=== PATIENT | female | born 1975 | race Caucasian/White ===

== ENCOUNTER 2016-10-29 20:19 | Emergency (ER) | payer BC ==
[2016-10-29 20:41] VITALS: O2SAT 99
[2016-10-29] MEDS ORDERED: DELTASONE 20 MG PO ONE (20:57)
[2016-10-29] MEDS ORDERED: DELTASONE 20 MG ONE (21:01)
--- NOTE | 2016-10-29 21:03 | ERPHSYRPT ---
- History of Present Illness Time Seen by Provider: 10/29/16 20:30 Source: patient Exam Limitations: clinical condition Patient Subjective Stated Complaint: Pt states she had just left [employer] and her face started to feel numb. She noticed her lip was swollen. Denies any new medications, food, etc. The only thing she can think of is the plant she was buying . Triage Nursing Assessment: Pt alert and oriented x3. skin pink warm and dry. afebrile. left side cheek and lip swollen. airway patent. pt is in no respiratory distress at this time Physician History: PATIENT JUST LEFT [employer] AFTER PURCHASE OF VANESSA AND DEVELOPED ONSET OF LOWER LEFT LIP SWELLING ASSOCIATED WITH SLIGHT LEFT FACIAL NUMBNESS, DENIES ITCHING, THROAT TIGHTNESS, DIFFICULTY BREATHING OR SWALLOWING OR HOARSNESS. Timing/Duration: abrupt onset Severity: mild ENT Location: mouth Prearrival Treatment: no prearrival treatment Associated Symptoms: other (LIP SWELLING) Allergies/Adverse Reactions: No Known Drug Allergies Allergy (Verified 10/29/16 20:26) Home Medications: Norgestimate-Ethinyl Estradiol [Ortho Tri-Cyclen 28 Tablet] 1 each PO DAILY 09/11 [History] Hx Tetanus, Diphtheria Vaccination/Date Given: (unsure) Hx Influenza Vaccination/Date Given: No - Review of Systems Constitutional: No Fever, No Chills Eyes: No Symptoms Ears, Nose, & Throat: No Symptoms, Other (LIP SWELLING) Respiratory: No Symptoms, No Cough, No Dyspnea Cardiac: No Symptoms, No Chest Pain, No Edema, No Syncope Abdominal/Gastrointestinal: No Abdominal Pain, No Nausea, No Vomiting, No Diarrhea Genitourinary Symptoms: No Dysuria Musculoskeletal: No Back Pain, No Neck Pain Skin: No Symptoms, No Rash Neurological: No Dizziness, No Focal Weakness, No Sensory Changes Psychological: No Symptoms Endocrine: No Symptoms All Other Systems: Reviewed and Negative - Past Medical History Pertinent Past Medical History: No Psycho-Social History: Anxiety Other Medical History: bells palsy - Past Surgical History Past Surgical History: Yes Gastrointestinal: Cholecystectomy, Hernia Repair Other Surgical History: TONSILS - Social History Smoking Status: Never smoker Exposure to second hand smoke: No Drug Use: none Patient Lives Alone: No - Female History Hx Last Menstrual Period: 10/24/2016 - Nursing Vital Signs Nursing Vital Signs: Initial Vital Signs Temperature 99.5 F Temperature Source Oral Pulse Rate 90 Respiratory Rate 16 Blood Pressure [Right Arm] 140/79 Pain Intensity 0 - Physical Exam General Appearance: no apparent distress, alert Eye Exam: bilateral eye: normal inspection, PERRL, EOMI Ear Exam: bilateral ear: auricle normal, canal normal, TM normal Nasal Exam: normal inspection Throat Exam: pharynx normal (THERE IS LEFT LOWER LIP SWELLING, NO FACIAL RASH, NO ANGIO EDEMA OF POSTERIOR PHARYNX), moist mucus membranes, No tonsillar exudate Neck Exam: supple Cardiovascular/Respiratory Exam: normal breath sounds, regular rate/rhythm Abdominal Exam: non-tender, soft Neurologic Exam: alert, oriented x 3, sensation nml, No motor deficits Skin Exam: normal color, warm, dry SpO2: 99 Oxygen Delivery: Room Air Ordered Tests: Medication Summary Discontinued Medications Generic Name Dose Route Start Last Admin Trade Name Adamq PRN Reason Stop Dose Admin Diphenhydramine HCl 50 mg 10/29/16 21:10 10/29/16 21:15 Benadryl 25 Mg Capsule PO 10/29/16 21:11 50 mg STAT ONE Administration Diphenhydramine HCl Confirm 10/29/16 21:14 Benadryl 25 Mg Capsule Administered 10/29/16 21:15 Dose 50 mg .ROUTE .STK-MED ONE Prednisone 60 mg 10/29/16 20:57 10/29/16 21:04 Deltasone 20 Mg PO 10/29/16 20:58 60 mg STAT ONE Administration Prednisone Confirm 10/29/16 21:01 Deltasone 20 Mg Administered 10/29/16 21:02 Dose 60 mg .ROUTE .STK-MED ONE - Progress Progress Note: 10/29/16 21:05 PATIENT GIVEN PREDNISONE 60MG ORALLY, PATIENT DROVE HERSELF TO HOSPITAL DISCHARGED HOME WITH BENADRYL 50MG Counseled pt/family regarding: diagnosis, need for follow-up - Departure Time of Disposition: 21:50 Departure Disposition: Home Clinical Impression: ALLERGIC REACTION Condition: Stable Critical Care Time: No Referrals: FREDDIE ANDRE [Primary Care Provider] - Instructions: Adverse Drug Reaction -- Allergic Additional Instructions: PREDNISONE 20MG, 2 TABLETS DAILY FOR 4 DAYS. TAKE OVER THE COUNTER BENADRYL 50MG EVERY 4 HOURS FOR ITCHING. RETURN TO EMERGENCY FOR INCREASING LIP SWELLING , ITCHING, DIFFICULTY BREATHING OR SWALLOWING. Prescriptions: Prednisone 20 mg [Deltasone 20 mg] 2 tab PO DAILY #8 tablet
[2016-10-29] MEDS ORDERED: BENADRYL 25 MG CAPSULE PO ONE (21:10)
[2016-10-29] MEDS ORDERED: BENADRYL 25 MG CAPSULE ONE (21:14)
[2016-10-29 21:35] VITALS: BP 140/79; PULSE 90
== END 2016-10-29 21:34 | disposition home or self-care (01) ==
LOC: ED 20:19
DX: T78.40XA Allergy, unspecified, initial encounter (principal)
CPT/HCPCS: 99282; A9270-GY; J7506

== ENCOUNTER 2016-11-12 10:55 | Emergency (ER) | payer BC ==
[2016-11-12 11:05] VITALS: O2SAT 100
[2016-11-12] MEDS ORDERED: Sodium Chloride 0.9% 1000 ML 1,000 ML IV STA (11:22)
--- NOTE | 2016-11-12 11:29 | ERPHSYRPT ---
- History of Present Illness Time Seen by Provider: 11/12/16 11:27 Historian: patient Exam Limitations: no limitations Patient Subjective Stated Complaint: pt states she was sitting at [employer] and had sudden onset of feeling "like I was going to pass out." states she has had left shoulder pain for the past 1 week. Triage Nursing Assessment: pt pink, warm, dry. alert and oriented x3. pt afebrile. pt able to transfer from wheelchair to ER cot without difficulty. Physician History: pt states she was sitting at [employer] and had sudden onset of feeling "like I was going to pass out." states she has had left shoulder pain for the past 1 week. Timing/Duration: week(s) Activities at Onset: none Quality: aching, dullness Location: shoulder (left) Chest Pain Radiation: arm, back Severity of Pain-Max: mild Severity of Pain-Current: mild Modifying Factors: Improves With: nothing Associated Symptoms: denies symptoms Prior Chest Pain/Cardiac Workup: no prior chest pain, no prior cardiac workup Aspirin Treatment Today: no aspirin today Allergies/Adverse Reactions: No Known Drug Allergies Allergy (Verified 11/12/16 11:04) Home Medications: Escitalopram Oxalate [Lexapro] 10 mg PO DAILY 11/12/16 [History] Norgestimate-Ethinyl Estradiol [Mononessa 28 Tablet] 1 each PO UD 11/12/16 [ History] Hx Tetanus, Diphtheria Vaccination/Date Given: Yes (unknown) Hx Influenza Vaccination/Date Given: No Hx Pneumococcal Vaccination/Date Given: No Immunizations Up to Date: Yes - Review of Systems Constitutional: No Fever, No Chills Eyes: No Symptoms Ears, Nose, & Throat: No Symptoms Respiratory: No Cough, No Dyspnea Cardiac: Chest Pain, No Edema, No Syncope Abdominal/Gastrointestinal: No Abdominal Pain, No Nausea, No Vomiting, No Diarrhea Genitourinary Symptoms: No Dysuria Musculoskeletal: No Back Pain, No Neck Pain Skin: No Rash Neurological: No Dizziness, No Focal Weakness, No Sensory Changes Psychological: No Symptoms Endocrine: No Symptoms All Other Systems: Reviewed and Negative - Past Medical History Pertinent Past Medical History: Yes Psycho-Social History: Anxiety Other Medical History: bells palsy - Past Surgical History Past Surgical History: Yes Gastrointestinal: Cholecystectomy, Hernia Repair Other Surgical History: TONSILS - Social History Smoking Status: Never smoker Exposure to second hand smoke: No Drug Use: none Patient Lives Alone: No - Female History Hx Last Menstrual Period: end september 2016 - Nursing Vital Signs Nursing Vital Signs: Initial Vital Signs Temperature 98.9 F Temperature Source Oral Pulse Rate [] 66 Pulse Rate 63 Respiratory Rate 18 Blood Pressure [] 137/77 Pain Intensity 3 - Physical Exam General Appearance: no apparent distress, alert Eye Exam: PERRL/EOMI, eyes nml inspection Ears, Nose, Throat Exam: normal ENT inspection, moist mucous membranes Neck Exam: normal inspection, non-tender, supple, full range of motion Respiratory Exam: normal breath sounds, lungs clear, No respiratory distress Cardiovascular Exam: regular rate/rhythm, normal heart sounds Gastrointestinal/Abdomen Exam: soft, No tenderness, No mass Back Exam: normal inspection, No CVA tenderness, No vertebral tenderness Extremity Exam: normal inspection, normal range of motion Neurologic Exam: alert, oriented x 3, cooperative, normal mood/affect, sensation nml, No motor deficits Skin Exam: normal color, warm, dry SpO2: 100 Oxygen Delivery: Room Air - Course Nursing assessment & vital signs reviewed: Yes EKG Interpreted by Me: Sinus Rhythm - Radiology Exams Chest X-ray Interpretation: Reviewed by me (no acute infiltrate) Ordered Tests: Active Orders 24 hr Category Date Time Status Tank Pumper Panelboard STAT Care 11/12/16 11:07 Active EKG-ER Only STAT Care 11/12/16 11:07 Active IV Insertion STAT Care 11/12/16 11:07 Active Regular Diet Diet 11/12/16 Dinner Active CHEST 1 VIEW (PORTABLE) Stat Exams 11/12/16 11:22 Taken CBC W DIFF Stat Lab 11/12/16 11:40 Completed CMP Stat Lab 11/12/16 11:40 Completed TROPONIN Q3H Lab 11/12/16 11:40 Completed TROPONIN Q3H Lab 11/12/16 14:30 Ordered TROPONIN Q3H Lab 11/12/16 17:30 Ordered TROPONIN Q3H Lab 11/12/16 20:30 Ordered TROPONIN Q3H Lab 11/12/16 23:30 Ordered Medication Summary Discontinued Medications Generic Name Dose Route Start Last Admin Trade Name Freq PRN Reason Stop Dose Admin Sodium Chloride 1,000 mls @ 999 mls/hr 11/12/16 11:22 11/12/16 12:13 Sodium Chloride 0.9% 1000 Ml IV 11/12/16 12:22 999 mls/hr .Q1H1M STA Administration Sodium Chloride Confirm 06/18/17 12:17 Sodium Chloride 0.9% 1000 Ml Administered 11/12/16 12:18 Dose 1,000 mls @ .ROUTE .[facility]-MED ONE Lab/Rad Data: Laboratory Result Diagrams 11/12/16 11:40 11/12/16 11:40 Laboratory Results 11/12/16 11/12/16 11/12/16 Range/Units 11:40 11:40 11:40 WBC 8.5 (4.0-10.5) K/mm3 RBC 4.41 (4.1-5.4) M/mm3 Hgb 13.2 (12.0-16.0) gm/dl Hct 40.2 (35-47) % MCV 91.2 (78-100) fl MCH 29.9 (26-32) pg MCHC 32.8 (32-36) g/dl RDW 13.3 (11.5-14.0) % Plt Count 264 (150-450) K/mm3 MPV 10.5 H (6-9.5) fl Gran % 60.5 (36.0-66.0) % Lymphocytes % 31.4 (24.0-44.0) % Monocytes % 7.5 (0.0-12.0) % Eosinophils % 0.4 (0.00-5.0) % Basophils % 0.2 (0.0-0.4) % Basophils # 0.02 (0-0.4) Sodium 142 (136-145) mEq/L Potassium 3.7 (3.5-5.1) mEq/L Chloride 107 (98-107) mEq/L Carbon Dioxide 26.5 (21-32) mEq/L Anion Gap 11.8 (5-15) MEQ/L BUN 14 (9-20) mg/dL Creatinine 1.06 (0.55-1.30) mg/dl Estimated GFR > 60 ML/MIN Glucose 68 L (70-110) MG/DL Calcium 8.8 (8.5-10.1) mg/dL Total Bilirubin 0.70 (0.2-1.0) mg/dL AST 14 L (15-37) U/L ALT 16 (12-78) U/L Alkaline Phosphatase 46 (46-116) U/L Troponin I < 0.017 (0.000-0.056) ng/ml Serum Total Protein 6.8 (6.4-8.2) gm/dL Albumin 3.3 L (3.4-5.0) g/dL - Progress Progress: improved Air Movement: good Blood Culture(s) Obtained: No Antibiotics given: No Counseled pt/family regarding: lab results, diagnosis, need for follow-up, rad results - Departure Time of Disposition: 12:54 Departure Disposition: Home Clinical Impression: Chest pain of uncertain etiology Condition: Stable Critical Care Time: Yes Critical Care Time(excluding separately billable procedures): 30-74 minutes Referrals: FRANCHESCA SALAZAR [Nurse Practioner] - Instructions: Atypical Chest Pain Additional Instructions: During your ER visit, we did some blood tests and chest x-ray and EKG to rule out myocardial infarction. At this point of time, the reason for chest pain and pain in your left arm , unable to determine. We are advising you to follow- up with your primary care physician in next 2-3 days for further workup including exercise stress tests. Your blood sugar was found to be 68, which is little low on side. That is another reason you advice to follow-up with her primary care physician for further workup. If your chest pain recur, come back to the emergency room. Please follow the instructions given to you. Please take your medication as prescribed if given. If symptoms recur or get worse, come back to the emergency room if you cannot reach your primary care physician, or call your primary care physician for an appointment. Again if your symptoms get worse, come back to the emergency room. Thanks for visiting emergency room, and let us take care of you. Prescriptions: Clonazepam 0.5 mg [Klonopin 0.5 MG] 0.5 mg PO BID #15 tab
[2016-11-12 11:56] LABS: BASOPHIL % 0.2 % (0.0-0.4); Eosinophil % 0.4 % (0.00-5.0); Granulocytes % 60.5 % (36.0-66.0); Lymphocytes % 31.4 % (24.0-44.0); Mean Cell Volume 91.2 fl (78-100); Mean Corpuscular Hemoglobin 29.9 pg (26-32); Mean Platelet Volume 10.5 fl (6-9.5); Monocytes % 7.5 % (0.0-12.0); Platelet Count 264 K/mm3 (150-450); Red Blood Count 4.41 M/mm3 (4.1-5.4); Red Cell Distribution Width 13.3 % (11.5-14.0); White Blood Count 8.5 K/mm3 (4.0-10.5)
[2016-11-12] MEDS ORDERED: Sodium Chloride 0.9% 1000 ML 1,000 ML ONE (12:17)
[2016-11-12 12:19] LABS: ALBUMIN 3.3 g/dL (3.4-5.0); ALKALINE PHOSPHATASE 46 U/L (46-116); ANION GAP 11.8 MEQ/L (5-15); BLOOD UREA NITROGEN 14 mg/dL (9-20); CHLORIDE 107 mEq/L (98-107); Carbon Dioxide 26.5 mEq/L (21-32); Glucose 68 MG/DL (70-110); Potassium 3.7 mEq/L (3.5-5.1); SGOT/AST 14 U/L (15-37); SGPT/ALT 16 U/L (12-78); SODIUM 142 mEq/L (136-145); Total Protein 6.8 gm/dL (6.4-8.2)
[2016-11-12 13:21] VITALS: BP 155/79; PULSE 71
--- NOTE | 2016-11-12 20:51 | XRAY ---
Indication: Chest pain. Comparison: August 25, 2010. Portable chest again demonstrates normal heart, lungs, and bony thorax.
== END 2016-11-12 13:24 | disposition home or self-care (01) ==
LOC: ED 10:55
DX: R07.89 Other chest pain (principal)
CPT/HCPCS: 36000; 36415; 71010; 80053; 82962; 84484; 85025; 93005; 93041; 96360; 99284

== ENCOUNTER 2017-01-20 13:22 | Emergency (ER) | payer BC ==
[2017-01-20] MEDS ORDERED: BABY ASPIRIN 81 MG CHEW PO ONE (13:33)
[2017-01-20] MEDS ORDERED: Sodium Chloride 0.9% 1000 ML 1,000 ML IV STA (13:33)
[2017-01-20] MEDS ORDERED: Zofran 4 MG/2 ML VIAL IV ONE (13:33)
[2017-01-20] MEDS ORDERED: Vistaril 50 MG/ML IM ONE ×2 (13:34→13:43)
[2017-01-20 13:36] VITALS: O2SAT 98
[2017-01-20] MEDS ORDERED: Zofran 4 MG/2 ML VIAL ONE (13:43)
[2017-01-20] MEDS ORDERED: BABY ASPIRIN 81 MG CHEW ONE (13:43)
[2017-01-20] MEDS ORDERED: Sodium Chloride 0.9% 1000 ML 1,000 ML ONE (13:43)
[2017-01-20 13:45] LABS: BASOPHIL % 0.2 % (0.0-0.4); Eosinophil % 0.5 % (0.00-5.0); Granulocytes % 53.6 % (36.0-66.0); Lymphocytes % 38.4 % (24.0-44.0); Mean Cell Volume 90.9 fl (78-100); Mean Corpuscular Hemoglobin 29.6 pg (26-32); Mean Platelet Volume 9.8 fl (6-9.5); Monocytes % 7.3 % (0.0-12.0); Platelet Count 319 K/mm3 (150-450); Red Blood Count 4.52 M/mm3 (4.1-5.4); Red Cell Distribution Width 13.2 % (11.5-14.0); White Blood Count 9.8 K/mm3 (4.0-10.5)
[2017-01-20 14:10] LABS: ALBUMIN 3.6 g/dL (3.4-5.0); ALKALINE PHOSPHATASE 66 U/L (46-116); ANION GAP 12.6 MEQ/L (5-15); BLOOD UREA NITROGEN 9 mg/dL (9-20); CHLORIDE 105 mEq/L (98-107); Carbon Dioxide 26.5 mEq/L (21-32); Glucose 77 MG/DL (70-110); Potassium 4.2 mEq/L (3.5-5.1); SGOT/AST 16 U/L (15-37); SGPT/ALT 15 U/L (12-78); SODIUM 140 mEq/L (136-145); Total Protein 7.3 gm/dL (6.4-8.2)
[2017-01-20] MEDS ORDERED: TORAdol 30 mg Injection IV ONE (14:36)
[2017-01-20] MEDS ORDERED: TYLENOL 325 MG PO ONE (14:36)
--- NOTE | 2017-01-20 14:42 | ERPHSYRPT ---
- History of Present Illness Time Seen by Provider: 01/20/17 13:32 Historian: patient, family (boyfriend) Patient Subjective Stated Complaint: pt states she began having chest pain this morning at 0830. pt states she is nauseated. denies any recent illness. has had a cardiac workup recently. Triage Nursing Assessment: pt pink, moist, warm. lung sounds clear and equal bilaterally. pt afebrile. Physician History: CC: chest pain Hx: 41 y/o patient of Dr Wilson ([employer]int[employer]), Dr Monika CASAS for chronic fatigue workup, and Dr Wen cardiology. She had stress treadmill and echo earlier this week but does not have the results as yet. She felt some chest pain at 8: 30 AM and again since 11AM today. Goes to her neck and arm. She feels hot. Nausea and dry heaves. No abd pain. She feels light-headed. Feels better lying on left side in a ball. She has had prior similar episodes but has not identified specific cause. ALL: None Meds: OCP, torpol, lexapro ILL: Anxiety, palpitations Social: Nonsmoker, calculus teacher, LMP 1 week ago Surg: hernia, Tonsils, GB Timing/Duration: today Severity of Pain-Max: severe Severity of Pain-Current: severe Aspirin Treatment Today: 81 mg x 1, provided by ED Allergies/Adverse Reactions: No Known Drug Allergies Allergy (Verified 01/20/17 13:36) Home Medications: Escitalopram Oxalate [Lexapro] 10 mg PO DAILY 11/12/16 [History] Norgestimate-Ethinyl Estradiol [Mononessa 28 Tablet] 1 each PO UD 11/12/16 [ History] Metoprolol Succinate 25 mg Xl* [Toprol-Xl 25MG Tablets] 12.5 mg PO DAILY [History] Hx Tetanus, Diphtheria Vaccination/Date Given: Yes Hx Influenza Vaccination/Date Given: No Hx Pneumococcal Vaccination/Date Given: No Immunizations Up to Date: Yes - Review of Systems Constitutional: Weakness (general), No Fever, No Chills Eyes: No Symptoms Ears, Nose, & Throat: No Symptoms Respiratory: No Cough, No Dyspnea Cardiac: Chest Pain, No Syncope Abdominal/Gastrointestinal: Nausea, No Abdominal Pain, No Diarrhea Genitourinary Symptoms: No Dysuria Musculoskeletal: No Back Pain Skin: No Rash Neurological: Headache, No Focal Weakness, No Parasthesia All Other Systems: Reviewed and Negative - Past Medical History Pertinent Past Medical History: Yes Psycho-Social History: Anxiety Other Medical History: bells palsy - Past Surgical History Past Surgical History: Yes Gastrointestinal: Cholecystectomy, Hernia Repair Other Surgical History: TONSILS - Social History Smoking Status: Never smoker Exposure to second hand smoke: No Drug Use: none Patient Lives Alone: No - Female History Hx Last Menstrual Period: jan 14 2017 - Nursing Vital Signs Nursing Vital Signs: Initial Vital Signs Temperature 98.8 F 01/20/17 13:23 Pulse Rate 63 01/20/17 13:23 Respiratory Rate 20 01/20/17 13:23 Blood Pressure 141/80 01/20/17 13:23 O2 Sat by Pulse Oximetry 98 01/20/17 13:23 Pain Scale Pain Intensity 0 - Physical Exam General Appearance: alert Eye Exam: PERRL/EOMI Ears, Nose, Throat Exam: normal ENT inspection, moist mucous membranes Neck Exam: normal inspection, non-tender, supple Respiratory Exam: normal breath sounds, lungs clear Cardiovascular Exam: regular rate/rhythm, No murmur, No friction rub Gastrointestinal/Abdomen Exam: soft, No tenderness, No distention Back Exam: normal inspection, normal range of motion Extremity Exam: normal inspection, normal range of motion, No calf tenderness, No pedal edema Neurologic Exam: alert, oriented x 3, web site manager II-XII nml as tested, sensation nml, No motor deficits Skin Exam: warm, dry, No rash SpO2 Interpretation: normal SpO2: 98 Oxygen Delivery: Room Air - Course Nursing assessment & vital signs reviewed: Yes EKG Interpreted by Me: RATE (71), Sinus Rhythm, NORMAL AXIS, NORMAL INTERVALS ( QTc 397), NORMAL QRS, NORMAL ST-T - Radiology Exams cxr X-ray Interpretation: Reviewed by me, Negative (nipple shadow right) Ordered Tests: Active Orders 24 hr Category Date Time Status Last Greaser STAT Care 01/20/17 13:33 Active Clean Catch Urine Specimen STAT Care 01/20/17 14:36 Active EKG-ER Only STAT Care 01/20/17 13:33 Active EKG-ER Only STAT Care 01/20/17 17:42 Active IV Insertion STAT Care 01/20/17 13:33 Active Pulse Oximetry (ED) STAT Care 01/20/17 13:33 Active CHEST 1 VIEW (PORTABLE) Stat Exams 01/20/17 13:33 Taken CBC W DIFF Stat Lab 01/20/17 13:33 Completed CMP Stat Lab 01/20/17 13:33 Completed CULTURE,URINE Stat Lab 01/20/17 14:43 Received HCG QUALITATIVE,SERUM Stat Lab 01/20/17 13:25 Completed TROPONIN Q3H Lab 01/20/17 13:25 Completed TROPONIN Q3H Lab 01/20/17 16:47 Completed TROPONIN Q3H Lab 01/20/17 19:45 Ordered TROPONIN Q3H Lab 01/20/17 22:45 Ordered TROPONIN Q3H Lab 01/21/17 01:45 Ordered UA W/ MICROSCOPIC Stat Lab 01/20/17 14:43 Completed Medication Summary Discontinued Medications Generic Name Dose Route Start Last Admin Trade Name Freq PRN Reason Stop Dose Admin Acetaminophen 650 mg 01/20/17 14:36 01/20/17 14:54 Tylenol 325 Mg PO 01/20/17 14:37 650 mg STAT ONE Administration Acetaminophen Confirm 01/20/17 14:53 Tylenol 325 Mg Administered 01/20/17 14:54 Dose 650 mg .ROUTE .STK-MED ONE Aspirin 81 mg 01/20/17 13:33 01/20/17 13:48 Baby Aspirin 81 Mg Chew PO 01/20/17 13:34 81 mg STAT ONE Administration Aspirin Confirm 01/20/17 13:43 Baby Aspirin 81 Mg Chew Administered 01/20/17 13:44 Dose 81 mg .ROUTE .STK-MED ONE Hydroxyzine HCl 50 mg 01/20/17 13:34 01/20/17 13:48 Vistaril 50 Mg/Ml IM 01/20/17 13:35 50 mg STAT ONE Administration Hydroxyzine HCl Confirm 01/20/17 13:43 Vistaril 50 Mg/Ml Administered 01/20/17 13:44 Dose 50 mg IM .STK-MED ONE Sodium Chloride 1,000 mls @ 999 mls/hr 01/20/17 13:33 01/20/17 13:44 Sodium Chloride 0.9% 1000 Ml IV 01/20/17 14:33 999 mls/hr .Q1H1M STA Administration Sodium Chloride Confirm 01/20/17 13:43 Sodium Chloride 0.9% 1000 Ml Administered 01/20/17 13:44 Dose 1,000 mls @ ud .ROUTE .STK-MED ONE Ketorolac Tromethamine 30 mg 01/20/17 14:36 01/20/17 14:55 Toradol 30 Mg Injection IV 01/20/17 14:37 30 mg STAT ONE Administration Ketorolac Tromethamine Confirm 01/20/17 14:53 Toradol 30 Mg Injection Administered 01/20/17 14:54 Dose 30 mg .ROUTE .STK-MED ONE Ondansetron HCl 4 mg 01/20/17 13:33 01/20/17 13:45 Zofran 4 Mg/2 Ml Vial IV 01/20/17 13:34 4 mg STAT ONE Administration Ondansetron HCl Confirm 01/20/17 13:43 Zofran 4 Mg/2 Ml Vial Administered 01/20/17 13:44 Dose 4 mg .ROUTE .STK-MED ONE Lab/Rad Data: Laboratory Result Diagrams 01/20/17 13:33 01/20/17 13:33 Laboratory Results 01/20/17 01/20/17 01/20/17 Range/Units 16:47 14:43 13:33 WBC (4.0-10.5) K/mm3 RBC (4.1-5.4) M/mm3 Hgb (12.0-16.0) gm/dl Hct (35-47) % MCV (78-100) fl MCH (26-32) pg MCHC (32-36) g/dl RDW (11.5-14.0) % Plt Count (150-450) K/mm3 MPV (6-9.5) fl Gran % (36.0-66.0) % Lymphocytes % (24.0-44.0) % Monocytes % (0.0-12.0) % Eosinophils % (0.00-5.0) % Basophils % (0.0-0.4) % Basophils # (0-0.4) Sodium 140 (136-145) mEq/L Potassium 4.2 (3.5-5.1) mEq/L Chloride 105 (98-107) mEq/L Carbon Dioxide 26.5 (21-32) mEq/L Anion Gap 12.6 (5-15) MEQ/L BUN 9 (9-20) mg/dL Creatinine 0.97 (0.55-1.30) mg/dl Estimated GFR > 60 ML/MIN Glucose 77 (70-110) MG/DL Calcium 9.0 (8.5-10.1) mg/dL Total Bilirubin 0.80 (0.2-1.0) mg/dL AST 16 (15-37) U/L ALT 15 (12-78) U/L Alkaline Phosphatase 66 (46-116) U/L Troponin I < 0.017 (0.000-0.056) ng/ml Serum Total Protein 7.3 (6.4-8.2) gm/dL Albumin 3.6 (3.4-5.0) g/dL Serum , Qual (Negative) Ur Collection Type CCMS Urine Color YELLOW (YELLOW) Urine Appearance HAZY (CLEAR) Urine pH 7.0 (5-6) Ur Specific [place] 1.005 (1.005-1.025) Urine Protein NEGATIVE (Negative) Urine Ketones NEGATIVE (NEGATIVE) Urine Blood 5-10 (0-5) Rene/ul Urine Nitrite POSITIVE (NEGATIVE) Urine Bilirubin NEGATIVE (NEGATIVE) Urine Urobilinogen NORMAL (0-1) mg/dL Ur Leukocyte Esterase 1+ (NEGATIVE) Urine Microscopic RBC 0-2 (0-2) /HPF Urine Microscopic WBC 5-10 (0-5) /HPF Ur Epithelial Cells FEW (FEW) /HPF Urine Bacteria MANY (NEGATIVE) /HPF Urine Glucose NEGATIVE (NEGATIVE) mg/dL Specimen Received 1440 01/20/17 01/20/17 01/20/17 01/20/17 Range/Units 13:33 13:25 13:25 WBC 9.8 (4.0-10.5) K/mm3 RBC 4.52 (4.1-5.4) M/mm3 Hgb 13.4 (12.0-16.0) gm/dl Hct 41.1 (35-47) % MCV 90.9 (78-100) fl MCH 29.6 (26-32) pg MCHC 32.6 (32-36) g/dl RDW 13.2 (11.5-14.0) % Plt Count 319 (150-450) K/mm3 MPV 9.8 H (6-9.5) fl Gran % 53.6 (36.0-66.0) % Lymphocytes % 38.4 (24.0-44.0) % Monocytes % 7.3 (0.0-12.0) % Eosinophils % 0.5 (0.00-5.0) % Basophils % 0.2 (0.0-0.4) % Basophils # 0.02 (0-0.4) Sodium (136-145) mEq/L Potassium (3.5-5.1) mEq/L Chloride (98-107) mEq/L Carbon Dioxide (21-32) mEq/L Anion Gap (5-15) MEQ/L BUN (9-20) mg/dL Creatinine (0.55-1.30) mg/dl Estimated GFR ML/MIN Glucose (70-110) MG/DL Calcium (8.5-10.1) mg/dL Total Bilirubin (0.2-1.0) mg/dL AST (15-37) U/L ALT (12-78) U/L Alkaline Phosphatase (46-116) U/L Troponin I < 0.017 (0.000-0.056) ng/ml Serum Total Protein (6.4-8.2) gm/dL Albumin (3.4-5.0) g/dL Serum , Qual NEGATIVE (Negative) Ur Collection Type Urine Color (YELLOW) Urine Appearance (CLEAR) Urine pH (5-6) Ur Specific [place] (1.005-1.025) Urine Protein (Negative) Urine Ketones (NEGATIVE) Urine Blood (0-5) Rene/ul Urine Nitrite (NEGATIVE) Urine Bilirubin (NEGATIVE) Urine Urobilinogen (0-1) mg/dL Ur Leukocyte Esterase (NEGATIVE) Urine Microscopic RBC (0-2) /HPF Urine Microscopic WBC (0-5) /HPF Ur Epithelial Cells (FEW) /HPF Urine Bacteria (NEGATIVE) /HPF Urine Glucose (NEGATIVE) mg/dL Specimen Received - Progress Progress Note: 01/20/17 14:42 Pt was given zofran, vistaril and is feeling better. IVF bolus started but was kinked so now going. Will check UA. 01/20/17 15:14 Sipping fluids. She feels some better. Called Dr Cordova for Dallouol. Will repeat 3 hour troponin and release for follow up in cardiology office if stable. She has some UTI. Echo and stress test results were still pending at [facility]. 01/20/17 17:47 She is stable, feels better. No more pain. Repeat troponin undetectable. Discussed cardiology follow up. She is also seeing Dr Frank for follow up. Discussed possibility of panic attacks. She will consider psychologist referral for biofeedback. Counseled pt/family regarding: lab results, diagnosis, need for follow-up, rad results - Departure Time of Disposition: 17:48 Departure Disposition: Home Clinical Impression: Atypical chest pain Condition: Stable Critical Care Time: No Referrals: FRANCHESCA SALAZAR [Primary Care Provider] - Instructions: Atypical Chest Pain Additional Instructions: Rest over weekend. No driving and stay with family today. Consider psychology referral. Follow up next week with Dr Wen for cardiac test results. Return to ER for any problems or concerns.
[2017-01-20 14:47] LABS: Bilirubin NEGATIVE (NEGATIVE); COMPLETE URINE MICROSCOPIC? YES; Collection Type CCMS; Glucose NEGATIVE (NEGATIVE); Leukocyte Esterase 1+ (NEGATIVE)
[2017-01-20 14:48] LABS: ADD URINE CULTURE? YES (NO)
[2017-01-20] MEDS ORDERED: TORAdol 30 mg Injection ONE (14:53)
[2017-01-20] MEDS ORDERED: TYLENOL 325 MG ONE (14:53)
[2017-01-20 14:55] LABS: Bacteria MANY /HPF (NEGATIVE); Epithelial Cells FEW /HPF (FEW)
[2017-01-20 18:02] VITALS: BP 127/69; PULSE 62
--- NOTE | 2017-01-20 19:20 | XRAY ---
Indication: Chest pain, lightheadedness, and intermittent nausea. Comparison: January 12, 2017. Portable chest again demonstrates normal heart, lungs, and bony thorax.
== END 2017-01-20 18:06 | disposition home or self-care (01) ==
LOC: ED 13:22
DX: R07.89 Other chest pain (principal); R11.0 Nausea; R42 Dizziness and giddiness; F41.3 Other mixed anxiety disorders; R00.2 Palpitations
CPT/HCPCS: 36000; 36415; 71010; 80053; 81000; 84484; 84703; 85025; 87077; 87086; 87186; 93005; 93041; 96360; 96372; 96374; 96375; 99284; J1885; J2405; J3410; A9270-GY

== ENCOUNTER 2025-03-24 12:09 | Emergency (ER) | payer BC ==
[2025-03-24 12:14] VITALS: TEMP 98.3
--- NOTE | 2025-03-24 12:21 | ERPHSYRPT ---
- History of Present Illness Allergies/Adverse Reactions: No Known Drug Allergies Allergy (Verified 03/24/25 12:14) Home Medications: Escitalopram Oxalate [Lexapro] 20 mg PO DAILY 11/12/16 [History] Norgestimate-Ethinyl Estradiol [Mononessa 28 Tablet] 1 each PO UD 11/12/16 [History] Magnesium Glycinate 200 mg PO DAILY 03/06/25 [History] Pantoprazole Sodium [Protonix] 40 mg PO DAILY 03/06/25 [History] Hx Tetanus, Diphtheria Vaccination/Date Given: Yes Hx Influenza Vaccination/Date Given: No Hx Pneumococcal Vaccination/Date Given: No Travel Risk - Emerging Infectious Disease Are you exhibiting symptoms associated with any current EIDs: No Symptoms: Abdominal Pain - Past Medical History Pertinent Past Medical History: Yes Neurological History: No Pertinent History ENT History: No Pertinent History Cardiac History: No Pertinent History Respiratory History: No Pertinent History Endocrine Medical History: No Pertinent History Musculoskeletal History: Other GI Medical History: GERD, Hernia History: No Pertinent History Psycho-Social History: Anxiety Female Reproductive Disorders: No Pertinent History Other Medical History: PMH: SAUCEDO'S PALSY. - Past Surgical History Past Surgical History: Yes Neuro Surgical History: No Pertinent History Cardiac: Cardiac Catheterization Respiratory: No Pertinent History Gastrointestinal: Cholecystectomy, Hernia Repair, Other Genitourinary: No Pertinent History Musculoskeletal: No Pertinent History Female Surgical History: No Pertinent History Other Surgical History: Huma Fundoplication - Female History Hx Last Menstrual Period: last month - Social History Smoking Status: Never smoker Exposure to second hand smoke: No - Social Determinants of Health Will the patient participate in the screening: Yes Do you worry about a steady place to live?: No In the past 12 months,have you had to go without utilities?: No Transportation Issues: No Has anyone in your support network made you feel unsafe?: No Have you or anyone in your house had to go w/o enough food: No Comment: pt refused help - Nursing Vital Signs Nursing Vital Signs: Initial Vital Signs Temperature 98.3 F 03/24/25 12:10 Pulse Rate 86 03/24/25 12:10 Respiratory Rate 18 03/24/25 12:10 Blood Pressure 145/90 03/24/25 12:10 O2 Sat by Pulse Oximetry 100 03/24/25 12:10 Pain Scale Pain Intensity 3 - Physical Exam SpO2: 100 - Course Nursing assessment & vital signs reviewed: Yes EKG Interpreted by Me: RATE (73), Sinus Rhythm, NORMAL AXIS, NORMAL INTERVALS, NORMAL QRS Ordered Tests: Active Orders 24 hr Category Date Time Status Sample Maker Hand STAT Care 03/24/25 12:19 Active EKG-ER Only STAT Care 03/24/25 12:18 Active IV Insertion STAT Care 03/24/25 12:18 Active Pulse Oximetry (ED) STAT Care 03/24/25 12:18 Active CHEST 1 VIEW (PORTABLE) Stat Exams 03/24/25 12:19 Ordered CBC W DIFF Stat Lab 03/24/25 12:18 Ordered CMP Stat Lab 03/24/25 12:18 Ordered D-DIMER QUANTITATIVE Stat Lab 03/24/25 12:18 Ordered HCG QUALITATIVE, URINE Stat Lab 03/24/25 Ordered NT PRO BNPII Stat Lab 03/24/25 Ordered TROPONIN Q4H Lab 03/24/25 12:30 Ordered TROPONIN Q4H Lab 03/24/25 16:30 Ordered TROPONIN Q4H Lab 03/24/25 20:30 Ordered UA W/RFX UR CULTURE Stat Lab 03/24/25 12:19 Ordered Urine Triage Profile Stat Lab 03/24/25 12:19 Ordered - Progress Progress: improved Air Movement: good Blood Culture(s) Obtained: No Antibiotics given: No - Departure Condition: Fair Referrals: ADELSO AHUMADA NP [Primary Care Provider, UNKNOWN] - Follow up/PCP as directed
[2025-03-24 12:37] LABS: BASOPHIL % 0.2 % (0.1-1.2); Basophil (Absolute #) 0.02 x10^3/uL (0.01-0.08); Eosinophil (Absolute #) 0.07 x10^3/uL (0.04-0.36); Hematocrit 35.5 % (34.1-44.9); Hemoglobin 11.5 g/dL (11.2-15.7); IMMATURE GRAN # 0.03 x10^3u/L (0.001-0.031); IMMATURE GRAN % 0.3 % (0.001-0.429); Lymphocyte (Absolute #) 2.78 x10^3/uL (1.18-3.74); Mean Corpuscular Hemoglobin 29.5 pg (25.6-32.2); Mean Corpuscular Hgb Concent. 32.4 g/dL (32.2-35.5); Monocyte (Absolute #) 0.64 x10^3/uL (0.24-0.86); NUCLEATED RBC # 0.00 x10^3u/L (0.00-0.012); NUCLEATED RBC % 0.0 % (0.00-0.2); Platelet Count 328 x10^3/uL (182-369); Red Blood Count 3.90 x10^6/uL (3.93-5.22); White Blood Count 9.6 x10^3/uL (3.98-10.04)
--- NOTE | 2025-03-24 12:43 | ERPHSYRPT ---
- History of Present Illness Time Seen by Provider: 03/24/25 12:42 Historian: patient Exam Limitations: no limitations Patient Subjective Stated Complaint: Chest pressure/heart palpitation Triage Nursing Assessment: PT ARRIVES TO THE ER VIA PRIVATE VEHICLE. PT AMBULATES INTO THE ER WITHOUT ANY DIFFICULTY. PT IS ALERT AND ORIENTED X4, NO SIGNS OF RESPIRATORY DISTRESS, PULSES ARE IRREGULAR BUT PRESENT BILATERALLY. PT STATES SHE HAD AN EGD LAST SUNDAY WHERE SHE WAS PLACED ON A MONITOR AND TOLD SHE WAS IN TRIGEMINY. PT STATES THAT SHE HAS FELT HER HEART FLUTTER BEFORE BUT ALWAYS JUST THOUGHT THAT SHE WAS IN A STATE OF PANIC. PT STATES THAT THE DISCOMFORT DOES NOT RADIATE. MONITOR SHOWS PVC'S OCCASIONALLY. PT STATES THAT WHEN HER HEART FLUTTERS IT SOMETIMES BRINGS ON A HEADACHE IN THE FRONT OF HER FOREHEAD. Physician History: Patient is a 49-year-old female history of GERD, anxiety otherwise healthy presents to our ED for evaluation of heart palpitations. Patient states that she has been experiencing an irregular heart rhythm at home. Patient states she had a EGD last and was advised that she was having trigeminy at that time. No associated nausea vomiting or diaphoresis. No trauma no fever. Patient otherwise feels well. She voices no other complaints or concerns at this time. Portions of this note were created with voice recognition technology. There may be grammatical, spelling, punctuation or sound alike errors Timing/Duration: today Activities at Onset: none Quality: pressure Location: substernal Chest Pain Radiation: no radiation Severity of Pain-Max: moderate Severity of Pain-Current: mild Modifying Factors: Improves With: nothing Associated Symptoms: denies symptoms Prior Chest Pain/Cardiac Workup: no prior chest pain Nitro Today/Relief: no nitro taken today Aspirin Treatment Today: no aspirin today Allergies/Adverse Reactions: No Known Drug Allergies Allergy (Verified 03/24/25 12:14) Home Medications: Escitalopram Oxalate [Lexapro] 20 mg PO DAILY 11/12/16 [History] Norgestimate-Ethinyl Estradiol [Mononessa 28 Tablet] 1 each PO UD 11/12/16 [History] Magnesium Glycinate 200 mg PO DAILY 03/06/25 [History] Pantoprazole Sodium [Protonix] 40 mg PO DAILY 03/06/25 [History] Hx Tetanus, Diphtheria Vaccination/Date Given: Yes Hx Influenza Vaccination/Date Given: No Hx Pneumococcal Vaccination/Date Given: No Immunizations Up to Date: Yes Travel Risk - International Travel Have you traveled outside of the country in past 3 weeks: No - Emerging Infectious Disease Are you exhibiting symptoms associated with any current EIDs: No Symptoms: Abdominal Pain - Review of Systems All Other Systems: Reviewed and Negative - Past Medical History Pertinent Past Medical History: Yes Neurological History: No Pertinent History ENT History: No Pertinent History Cardiac History: No Pertinent History Respiratory History: No Pertinent History Endocrine Medical History: No Pertinent History Musculoskeletal History: Other GI Medical History: GERD, Hernia History: No Pertinent History Psycho-Social History: Anxiety Female Reproductive Disorders: No Pertinent History Other Medical History: PMH: SAUCEDO'S PALSY, HEART CATHETERIZATION IN 2018. - Past Surgical History Past Surgical History: Yes Neuro Surgical History: No Pertinent History Cardiac: Cardiac Catheterization Respiratory: No Pertinent History Gastrointestinal: Cholecystectomy, Hernia Repair, Other Genitourinary: No Pertinent History Musculoskeletal: No Pertinent History Female Surgical History: No Pertinent History Other Surgical History: Huma Fundoplication - Female History Hx Last Menstrual Period: 03/03/2025 Hx Now: No - Social History Smoking Status: Never smoker Exposure to second hand smoke: No Drug Use: none - Social Determinants of Health Will the patient participate in the screening: Yes Do you worry about a steady place to live?: No Do you have any problems with any of the following?: No known problems In the past 12 months,have you had to go without utilities?: No Transportation Issues: No Has anyone in your support network made you feel unsafe?: No Have you or anyone in your house had to go w/o enough food: No - Nursing Vital Signs Nursing Vital Signs: Initial Vital Signs Temperature 98.3 F 03/24/25 12:10 Pulse Rate 86 03/24/25 12:10 Respiratory Rate 18 03/24/25 12:10 Blood Pressure 145/90 03/24/25 12:10 O2 Sat by Pulse Oximetry 100 03/24/25 12:10 Pain Scale Pain Intensity 0 - Physical Exam General Appearance: no apparent distress, alert Eye Exam: PERRL/EOMI, eyes nml inspection Ears, Nose, Throat Exam: normal ENT inspection, moist mucous membranes Neck Exam: normal inspection, non-tender, supple, full range of motion Respiratory Exam: normal breath sounds, lungs clear, airway intact, No respiratory distress Cardiovascular Exam: regular rate/rhythm, normal heart sounds Gastrointestinal/Abdomen Exam: soft, No tenderness, No mass Back Exam: normal inspection, No CVA tenderness, No vertebral tenderness Extremity Exam: normal inspection, normal range of motion Neurologic Exam: alert, oriented x 3, cooperative, normal mood/affect, sensation nml, No motor deficits Skin Exam: normal color, warm, dry Lymphatic Exam: No adenopathy SpO2 Interpretation: normal SpO2: 100 O2 Delivery: Room Air - Course Nursing assessment & vital signs reviewed: Yes EKG Interpreted by Me: RATE (82), Sinus Rhythm, NORMAL AXIS, NORMAL INTERVALS, NORMAL QRS - Radiology Exams Chest X-ray Interpretation: Teleradiologist Report (Nonacute chest) Ordered Tests: Active Orders 24 hr Category Date Time Status Corporate General Manager STAT Care 03/24/25 12:19 Active EKG-ER Only STAT Care 03/24/25 12:18 Active IV Insertion STAT Care 03/24/25 12:18 Active Pulse Oximetry (ED) STAT Care 03/24/25 12:18 Active CHEST 1 VIEW (PORTABLE) Stat Exams 03/24/25 12:19 Completed CBC W DIFF Stat Lab 03/24/25 12:30 Completed CMP Stat Lab 03/24/25 12:30 Completed CULTURE,URINE Stat Lab 03/24/25 12:33 Received D-DIMER QUANTITATIVE Stat Lab 03/24/25 12:30 Completed HCG QUALITATIVE, URINE Stat Lab 03/24/25 12:33 Completed MAGNESIUM Stat Lab 03/24/25 12:30 Completed NT PRO BNPII Stat Lab 03/24/25 12:30 Completed TROPONIN Q4H Lab 03/24/25 12:30 Completed TROPONIN Q4H Lab 03/24/25 16:10 Completed TROPONIN Q4H Lab 03/24/25 20:30 Ordered UA W/RFX UR CULTURE Stat Lab 03/24/25 12:33 Completed Urine Triage Profile Stat Lab 03/24/25 12:33 Completed Lab/Rad Data: Laboratory Result Diagrams 03/24/25 12:30 03/24/25 12:30 Laboratory Results 03/24/25 03/24/25 03/24/25 Range/Units 16:10 12:33 12:33 WBC (3.98-10.04) x10^3/uL RBC (3.93-5.22) x10^6/uL Hgb (11.2-15.7) g/dL Hct (34.1-44.9) % MCV (79.4-94.8) fL MCH (25.6-32.2) pg MCHC (32.2-35.5) g/dL RDW (11.7-14.4) % Plt Count (182-369) x10^3/uL MPV (9.4-12.3) fL Gran % (34.0-71.1) % Immature Gran % (Auto) (0.001-0.429) % Nucleat RBC Rel Count (0.00-0.2) % Eos # (Auto) (0.04-0.36) x10^3/uL Immature Gran # (Auto) (0.001-0.031) x10^3u/L Absolute Lymphs (auto) (1.18-3.74) x10^3/uL Absolute Monos (auto) (0.24-0.86) x10^3/uL Absolute Nucleated RBC (0.00-0.012) x10^3u/L Lymphocytes % (19.3-51.7) % Monocytes % (4.7-12.5) % Eosinophils % (0.7-5.8) % Basophils % (0.1-1.2) % Absolute Granulocytes (1.56-6.13) x10^3/uL Basophils # (0.01-0.08) x10^3/uL D-Dimer (0.0-0.50) mg/L Sodium (135-145) mmol/L Potassium (3.5-5.1) mmol/L Chloride (98-107) mmol/L Carbon Dioxide (22-30) mmol/L Anion Gap (5-15) MEQ/L BUN (7-17) mg/dL Creatinine (0.52-1.04) mg/dL Estimated GFR ML/MIN Glucose (74-106) mg/dL Calcium (8.4-10.2) mg/dL Magnesium (1.6-2.3) mg/dL Total Bilirubin (0.2-1.3) mg/dL AST (14-36) U/L ALT (0-35) U/L Alkaline Phosphatase (38-126) U/L Troponin I < 0.012 (0.000-0.033) ng/mL NT-Pro-B Natriuret Pep (<300) pg/mL Serum Total Protein (6.3-8.2) g/dL Albumin (3.5-5.0) g/dL Urine Color (Yellow) Urine Appearance (Clear) Urine pH (4.6-8.0) Ur Specific Howard (1.005-1.030) Urine Protein (Negative) Urine Glucose (UA) (Negative) mg/dL Urine Ketones (Negative) Urine Blood (Negative) Urine Nitrite (Negative) Urine Bilirubin (Negative) Urine Urobilinogen (0.2) mg/dL Ur Leukocyte Esterase (Negative) U Hyaline Cast (Auto) (0-2) /LPF Urine Microscopic RBC (0-5) /HPF Urine Microscopic WBC (0-5) /HPF Ur Epithelial Cells (None Seen) /HPF Urine Bacteria (None Seen) /HPF Urine Culture Reflexed (NO) Urine HCG, Qual NEGATIVE (NEGATIVE) Urine Opiates Level NEGATIVE (NEGATIVE) Ur Methadone NEGATIVE (NEGATIVE) Urine Barbiturates NEGATIVE (NEGATIVE) Ur Phencyclidine (PCP) NEGATIVE (NEGATIVE) Urine Amphetamine NEGATIVE (NEGATIVE) U Benzodiazepine Level NEGATIVE (NEGATIVE) Urine Cocaine NEGATIVE (NEGATIVE) Urine Marijuana (THC) NEGATIVE (NEGATIVE) 03/24/25 03/24/25 03/24/25 Range/Units 12:33 12:30 12:30 WBC (3.98-10.04) x10^3/uL RBC (3.93-5.22) x10^6/uL Hgb (11.2-15.7) g/dL Hct (34.1-44.9) % MCV (79.4-94.8) fL MCH (25.6-32.2) pg MCHC (32.2-35.5) g/dL RDW (11.7-14.4) % Plt Count (182-369) x10^3/uL MPV (9.4-12.3) fL Gran % (34.0-71.1) % Immature Gran % (Auto) (0.001-0.429) % Nucleat RBC Rel Count (0.00-0.2) % Eos # (Auto) (0.04-0.36) x10^3/uL Immature Gran # (Auto) (0.001-0.031) x10^3u/L Absolute Lymphs (auto) (1.18-3.74) x10^3/uL Absolute Monos (auto) (0.24-0.86) x10^3/uL Absolute Nucleated RBC (0.00-0.012) x10^3u/L Lymphocytes % (19.3-51.7) % Monocytes % (4.7-12.5) % Eosinophils % (0.7-5.8) % Basophils % (0.1-1.2) % Absolute Granulocytes (1.56-6.13) x10^3/uL Basophils # (0.01-0.08) x10^3/uL D-Dimer (0.0-0.50) mg/L Sodium (135-145) mmol/L Potassium (3.5-5.1) mmol/L Chloride (98-107) mmol/L Carbon Dioxide (22-30) mmol/L Anion Gap (5-15) MEQ/L BUN (7-17) mg/dL Creatinine (0.52-1.04) mg/dL Estimated GFR ML/MIN Glucose (74-106) mg/dL Calcium (8.4-10.2) mg/dL Magnesium 2.0 (1.6-2.3) mg/dL Total Bilirubin (0.2-1.3) mg/dL AST (14-36) U/L ALT (0-35) U/L Alkaline Phosphatase (38-126) U/L Troponin I < 0.012 (0.000-0.033) ng/mL NT-Pro-B Natriuret Pep 580 (<300) pg/mL Serum Total Protein (6.3-8.2) g/dL Albumin (3.5-5.0) g/dL Urine Color Dark Yellow A (Yellow) Urine Appearance Clear (Clear) Urine pH 6.0 (4.6-8.0) Ur Specific Howard 1.025 (1.005-1.030) Urine Protein 30 (Negative) Urine Glucose (UA) Negative (Negative) mg/dL Urine Ketones Trace A (Negative) Urine Blood Trace (Negative) Urine Nitrite Negative (Negative) Urine Bilirubin Negative (Negative) Urine Urobilinogen 1.0 A (0.2) mg/dL Ur Leukocyte Esterase Negative (Negative) U Hyaline Cast (Auto) NONE SEEN (0-2) /LPF Urine Microscopic RBC 6-10 A (0-5) /HPF Urine Microscopic WBC 0-2 (0-5) /HPF Ur Epithelial Cells None Seen (None Seen) /HPF Urine Bacteria None Seen (None Seen) /HPF Urine Culture Reflexed YES (NO) Urine HCG, Qual (NEGATIVE) Urine Opiates Level (NEGATIVE) Ur Methadone (NEGATIVE) Urine Barbiturates (NEGATIVE) Ur Phencyclidine (PCP) (NEGATIVE) Urine Amphetamine (NEGATIVE) U Benzodiazepine Level (NEGATIVE) Urine Cocaine (NEGATIVE) Urine Marijuana (THC) (NEGATIVE) 03/24/25 03/24/25 03/24/25 Range/Units 12:30 12:30 12:30 WBC 9.6 (3.98-10.04) x10^3/uL RBC 3.90 L (3.93-5.22) x10^6/uL Hgb 11.5 (11.2-15.7) g/dL Hct 35.5 (34.1-44.9) % MCV 91.0 (79.4-94.8) fL MCH 29.5 (25.6-32.2) pg MCHC 32.4 (32.2-35.5) g/dL RDW 13.3 (11.7-14.4) % Plt Count 328 (182-369) x10^3/uL MPV 9.6 (9.4-12.3) fL Gran % 63.0 (34.0-71.1) % Immature Gran % (Auto) 0.3 (0.001-0.429) % Nucleat RBC Rel Count 0.0 (0.00-0.2) % Eos # (Auto) 0.07 (0.04-0.36) x10^3/uL Immature Gran # (Auto) 0.03 (0.001-0.031) x10^3u/L Absolute Lymphs (auto) 2.78 (1.18-3.74) x10^3/uL Absolute Monos (auto) 0.64 (0.24-0.86) x10^3/uL Absolute Nucleated RBC 0.00 (0.00-0.012) x10^3u/L Lymphocytes % 29.1 (19.3-51.7) % Monocytes % 6.7 (4.7-12.5) % Eosinophils % 0.7 (0.7-5.8) % Basophils % 0.2 (0.1-1.2) % Absolute Granulocytes 6.01 (1.56-6.13) x10^3/uL Basophils # 0.02 (0.01-0.08) x10^3/uL D-Dimer 0.48 (0.0-0.50) mg/L Sodium 137 (135-145) mmol/L Potassium 4.2 (3.5-5.1) mmol/L Chloride 104 (98-107) mmol/L Carbon Dioxide 27 (22-30) mmol/L Anion Gap 10.9 (5-15) MEQ/L BUN 11 (7-17) mg/dL Creatinine 0.87 (0.52-1.04) mg/dL Estimated GFR 82.1 ML/MIN Glucose 122 H (74-106) mg/dL Calcium 8.6 (8.4-10.2) mg/dL Magnesium (1.6-2.3) mg/dL Total Bilirubin 0.40 (0.2-1.3) mg/dL AST 20 (14-36) U/L ALT 13 (0-35) U/L Alkaline Phosphatase 73 (38-126) U/L Troponin I (0.000-0.033) ng/mL NT-Pro-B Natriuret Pep (<300) pg/mL Serum Total Protein 6.4 (6.3-8.2) g/dL Albumin 3.7 (3.5-5.0) g/dL Urine Color (Yellow) Urine Appearance (Clear) Urine pH (4.6-8.0) Ur Specific Howard (1.005-1.030) Urine Protein (Negative) Urine Glucose (UA) (Negative) mg/dL Urine Ketones (Negative) Urine Blood (Negative) Urine Nitrite (Negative) Urine Bilirubin (Negative) Urine Urobilinogen (0.2) mg/dL Ur Leukocyte Esterase (Negative) U Hyaline Cast (Auto) (0-2) /LPF Urine Microscopic RBC (0-5) /HPF Urine Microscopic WBC (0-5) /HPF Ur Epithelial Cells (None Seen) /HPF Urine Bacteria (None Seen) /HPF Urine Culture Reflexed (NO) Urine HCG, Qual (NEGATIVE) Urine Opiates Level (NEGATIVE) Ur Methadone (NEGATIVE) Urine Barbiturates (NEGATIVE) Ur Phencyclidine (PCP) (NEGATIVE) Urine Amphetamine (NEGATIVE) U Benzodiazepine Level (NEGATIVE) Urine Cocaine (NEGATIVE) Urine Marijuana (THC) (NEGATIVE) - Progress Progress: improved Air Movement: good Progress Note: Patient is a 49-year-old female presents to our ED with heart palpitations. Physical exam presenting unremarkable. D-dimer negative. Troponin negative x 2. EKG sinus rhythm. Chest x-ray shows no acute findings. Patient reassessed. Patient had no palpitations during her time in our ED. Patient will be discharged home with a Holter monitor. Patient Holter monitor will be for 3 days. She agrees to call her primary care doctor within 48 hours for reevaluation. No indication for further workup at this time. Patient's heart score is a 1. Toxicology screen negative. Patient voices no other complaints or concerns at this time. Portions of this note were created with voice recognition technology. There may be grammatical, spelling, punctuation or sound alike errors History obtained from patient. Differential diagnosis includes heart palpitation. Electrolyte abnormality, acute coronary syndrome, PE Complexity of problems addressed is moderate acute complicated. No critical care time. Complex of data reviewed and analyzed is moderate. Test ordered test reviewed results analyzed and correlated clinically with history and physical exam. Risk of complication at risk of morbidity/mortality of patient management is low. Vital stable. Time spent to discharge patient is approximately 15 minutes. Plan of care established for shared decision making. No social determinants of health present to impede follow-up. Portions of this note were created with voice recognition technology. There may be grammatical, spelling, punctuation or sound alike errors 03/24/25 17:13 Blood Culture(s) Obtained: No Antibiotics given: No Counseled pt/family regarding: lab results, diagnosis - Departure Departure Disposition: Home Clinical Impression: Microscopic hematuria, Heart palpitations Condition: Stable Critical Care Time: No Referrals: ADELSO AHUMADA NP [NON-STAFF PHY W/O PRIVILEGES, UNKNOWN] - Follow up/PCP as directed Additional Instructions: Discharge/Care Plan IRINEOLAUREN GRANDE was seen on 03/24/25 in the Emergency Room. The patient was counseled regarding Diagnosis,Lab results, Imaging studies, need for follow up and when to return to the Emergency Room. Prescriptions given: Discharge Note I have spoken with the patient and/or caregivers. I have explained the patient's condition, diagnosis and treatment plan based on the information available to me at this time. I have answered the patient's and/or caregiver's questions and addressed any concerns. The patient and/or caregivers have as good understanding of the patient's diagnosis, condition and treatment plan as can be expected at this point. The vital signs have been stable. The patient's condition is stable and appropriate for discharge from the emergency department. The patient will pursue further outpatient evaluation with the primary care physician or other designated or consulting physician as outlined in the discharge instructions. The patient and/or caregivers are agreeable to this plan of care and follow-up instructions have been explained in detail. The patient and/or caregivers have received these instruction. The patient/and or caregivers are aware that any significant change in condition or worsening of symptoms should prompt an immediate return to this or the closest emergency department or call 911.
--- NOTE | 2025-03-24 12:49 | XRAY ---
Indication: Pain. Comparison: February 08, 2021 Portable chest is now clear. Heart and mediastinal structures within normal limits. Bony thorax intact. Impression: Nonacute chest.
[2025-03-24 12:50] LABS: Glucose, Urine Negative (Negative); Protein,Urine Dip 30 (Negative); WBC 0-2 /HPF (0-5)
[2025-03-24 12:51] LABS: Calcium 8.6 mg/dL (8.4-10.2); Carbon Dioxide 27.0 mmol/L (22-30); Creatinine 1 0.87 mg/dL (0.52-1.04); EST GLOMERULAR FILTRATION RATE 82.1 ML/MIN; Glucose 122.0 mg/dL (74-106); Potassium 4.2 mmol/L (3.5-5.1); SGOT/AST 20.0 U/L (14-36); SGPT/ALT 13.0 U/L (0-35); Total Protein 6.4 g/dL (6.3-8.2)
[2025-03-24 12:53] LABS: HCG URINE TEST NEGATIVE (NEGATIVE)
[2025-03-24 13:07] LABS: TROPONIN < 0.012 ng/mL (0.000-0.033)
[2025-03-24 13:16] LABS: Amphetamine,Urine NEGATIVE (NEGATIVE); Barbiturate,Urine NEGATIVE (NEGATIVE); Benzodiazepine,Urine NEGATIVE (NEGATIVE); Cocaine,Urine NEGATIVE (NEGATIVE); Methadone,Urine NEGATIVE (NEGATIVE); Opiate,Urine NEGATIVE (NEGATIVE); PCP,Urine NEGATIVE (NEGATIVE); THC,Urine NEGATIVE (NEGATIVE)
[2025-03-24 17:04] VITALS: BP 148/86; PULSE 67; RESP 20
[2025-03-24 17:19] VITALS: O2SAT 100
== END 2025-03-24 17:21 | disposition home or self-care (01) ==
LOC: ED 12:09
DX: R31.29 Other microscopic hematuria (principal); R00.2 Palpitations; Z79.899 Other long term (current) drug therapy

== ENCOUNTER 2025-03-28 16:52 | Emergency (ER) | payer BC ==
--- NOTE | 2025-03-28 16:57 | ERPHSYRPT ---
- History of Present Illness Time Seen by Provider: 03/28/25 16:57 Historian: patient Exam Limitations: no limitations Physician History: This is a 49-year-old white female patient arrives by private vehicle accompanied by family with the complaint of chest pain and palpitations, "heart fluttering". She was seen for this same symptomatology approximately 3 days ago in our emergency department. She had a full cardiac workup with 2 normal troponin levels, normal chest x-ray, normal D-dimer level. She was discharged to home with a Holter monitor. She has followed up with her primary care provider and a cardiology appointment has already been scheduled for her. Patient states that she has been having the symptoms intermittently over several weeks but she states they are definitely worse with stress worry and anxiety. She is under a lot of stress at this time. Relatively recently she underwent an upper endoscopy. She does have a history of Huma fundoplication. She had a cardiac catheterization which was normal for her in approximately 2017 or 2018. Patient appears anxious and tearful today Timing/Duration: week(s), worse Quality: other (Chest fluttering) Location: substernal, central Chest Pain Radiation: no radiation Severity of Pain-Max: mild Severity of Pain-Current: mild Modifying Factors: Improves With: nothing Associated Symptoms: palpitations, No shortness of breath Prior Chest Pain/Cardiac Workup: cardiac cath (2016 or 2017) Nitro Today/Relief: no nitro taken today Aspirin Treatment Today: no aspirin today, 81 mg x 4, provided by ED Allergies/Adverse Reactions: No Known Drug Allergies Allergy (Verified 03/28/25 16:56) Home Medications: Escitalopram Oxalate [Lexapro] 20 mg PO DAILY 11/12/16 [History] Norgestimate-Ethinyl Estradiol [Mononessa 28 Tablet] 1 each PO UD 11/12/16 [History] Magnesium Glycinate 200 mg PO DAILY 03/06/25 [History] Pantoprazole Sodium [Protonix] 40 mg PO DAILY 03/06/25 [History] Hx Tetanus, Diphtheria Vaccination/Date Given: Yes Hx Influenza Vaccination/Date Given: No Hx Pneumococcal Vaccination/Date Given: No Travel Risk - International Travel Have you traveled outside of the country in past 3 weeks: No - Emerging Infectious Disease Are you exhibiting symptoms associated with any current EIDs: No Symptoms: Abdominal Pain - Review of Systems Constitutional: No Symptoms Eyes: No Symptoms Ears, Nose, & Throat: No Symptoms Respiratory: No Symptoms Cardiac: Palpitations (Left chest pain more palpitation/cardiac fluttering) Abdominal/Gastrointestinal: No Symptoms Genitourinary Symptoms: No Symptoms Musculoskeletal: No Symptoms Skin: No Symptoms Neurological: No Symptoms Psychological: No Symptoms Endocrine: No Symptoms Hematologic/Lymphatic: No Symptoms Immunological/Allergic: No Symptoms All Other Systems: Reviewed and Negative - Past Medical History Pertinent Past Medical History: Yes Neurological History: No Pertinent History ENT History: No Pertinent History Cardiac History: No Pertinent History Respiratory History: No Pertinent History Endocrine Medical History: No Pertinent History Musculoskeletal History: Other GI Medical History: GERD, Hernia History: No Pertinent History Psycho-Social History: Anxiety Female Reproductive Disorders: No Pertinent History Other Medical History: PMH: SAUCEDO'S PALSY, HEART CATHETERIZATION IN 2018. - Past Surgical History Past Surgical History: Yes Neuro Surgical History: No Pertinent History Cardiac: Cardiac Catheterization Respiratory: No Pertinent History Gastrointestinal: Cholecystectomy, Hernia Repair, Other Genitourinary: No Pertinent History Musculoskeletal: No Pertinent History Female Surgical History: No Pertinent History Other Surgical History: Huma Fundoplication - Female History Hx Last Menstrual Period: 03/03/2025 - Social History Smoking Status: Never smoker Exposure to second hand smoke: No Drug Use: none - Social Determinants of Health Will the patient participate in the screening: Yes Do you worry about a steady place to live?: No In the past 12 months,have you had to go without utilities?: No Transportation Issues: No Has anyone in your support network made you feel unsafe?: No Have you or anyone in your house had to go w/o enough food: No - Nursing Vital Signs Nursing Vital Signs: Initial Vital Signs Temperature 97 F 03/28/25 16:52 Pulse Rate 85 03/28/25 16:52 Respiratory Rate 18 03/28/25 16:52 Blood Pressure 149/79 03/28/25 16:52 O2 Sat by Pulse Oximetry 98 03/28/25 16:52 Pain Scale Pain Intensity 2 - Physical Exam General Appearance: no apparent distress, alert, anxiety, thin Eye Exam: PERRL/EOMI, eyes nml inspection Ears, Nose, Throat Exam: normal ENT inspection, moist mucous membranes Neck Exam: normal inspection, non-tender, supple, full range of motion Respiratory Exam: normal breath sounds, lungs clear, airway intact, No chest tenderness, No respiratory distress Cardiovascular Exam: regular rate/rhythm, normal heart sounds, normal peripheral pulses Gastrointestinal/Abdomen Exam: soft, normal bowel sounds, No tenderness Pelvic Exam: not done Rectal Exam: not done Back Exam: normal inspection, normal range of motion, No CVA tenderness, No vertebral tenderness Extremity Exam: normal inspection, normal range of motion, pelvis stable Neurologic Exam: alert, oriented x 3, cooperative, blaster helper II-XII nml as tested, nml cerebellar function, nml station & gait, sensation nml Skin Exam: normal color, warm, dry Lymphatic Exam: No adenopathy SpO2 Interpretation: normal O2 Delivery: Room Air - Course Nursing assessment & vital signs reviewed: Yes EKG Interpreted by Me: RATE (82), Sinus Rhythm, NORMAL AXIS, NORMAL INTERVALS, NORMAL QRS, Other (PVCs. QTc 425. No acute ischemic changes.) Ordered Tests: Active Orders 24 hr Category Date Time Status Project Management Engineer STAT Care 03/28/25 17:14 Active EKG-ER Only STAT Care 03/28/25 17:13 Active IV Insertion STAT Care 03/28/25 17:13 Active Pulse Oximetry (ED) STAT Care 03/28/25 17:13 Active CHEST WITHOUT CONTRAST [CT] Stat Exams 03/28/25 17:13 Completed CBC W DIFF Stat Lab 03/28/25 17:21 Completed CMP Stat Lab 03/28/25 17:21 Completed MAGNESIUM Stat Lab 03/28/25 17:21 Completed TROPONIN Q4H Lab 03/28/25 17:21 Completed TROPONIN Q4H Lab 03/28/25 21:15 Ordered TROPONIN Q4H Lab 03/29/25 01:15 Ordered TSH [TSH, 3RD Generation] Stat Lab 03/28/25 17:21 Completed Lab/Rad Data: Laboratory Result Diagrams 03/28/25 17:21 03/28/25 17:21 Laboratory Results 03/28/25 03/28/25 03/28/25 Range/Units 17:21 17:21 17:21 WBC 9.7 (3.98-10.04) x10^3/uL RBC 4.04 (3.93-5.22) x10^6/uL Hgb 11.9 (11.2-15.7) g/dL Hct 36.9 (34.1-44.9) % MCV 91.3 (79.4-94.8) fL MCH 29.5 (25.6-32.2) pg MCHC 32.2 (32.2-35.5) g/dL RDW 13.1 (11.7-14.4) % Plt Count 408 H (182-369) x10^3/uL MPV 9.9 (9.4-12.3) fL Gran % 53.9 (34.0-71.1) % Immature Gran % (Auto) 0.2 (0.001-0.429) % Nucleat RBC Rel Count 0.0 (0.00-0.2) % Eos # (Auto) 0.09 (0.04-0.36) x10^3/uL Immature Gran # (Auto) 0.02 (0.001-0.031) x10^3u/L Absolute Lymphs (auto) 3.62 (1.18-3.74) x10^3/uL Absolute Monos (auto) 0.70 (0.24-0.86) x10^3/uL Absolute Nucleated RBC 0.00 (0.00-0.012) x10^3u/L Lymphocytes % 37.4 (19.3-51.7) % Monocytes % 7.2 (4.7-12.5) % Eosinophils % 0.9 (0.7-5.8) % Basophils % 0.4 (0.1-1.2) % Absolute Granulocytes 5.21 (1.56-6.13) x10^3/uL Basophils # 0.04 (0.01-0.08) x10^3/uL Sodium 139 (135-145) mmol/L Potassium 3.7 (3.5-5.1) mmol/L Chloride 107 (98-107) mmol/L Carbon Dioxide 26 (22-30) mmol/L Anion Gap 9.2 (5-15) MEQ/L BUN 13 (7-17) mg/dL Creatinine 0.94 (0.52-1.04) mg/dL Estimated GFR 74.9 ML/MIN Glucose 86 (74-106) mg/dL Calcium 8.8 (8.4-10.2) mg/dL Magnesium 2.2 (1.6-2.3) mg/dL Total Bilirubin 0.30 (0.2-1.3) mg/dL AST 21 (14-36) U/L ALT 14 (0-35) U/L Alkaline Phosphatase 77 (38-126) U/L Troponin I < 0.012 (0.000-0.033) ng/mL Serum Total Protein 7.5 (6.3-8.2) g/dL Albumin 4.1 (3.5-5.0) g/dL TSH 3rd Generation 1.998 (0.470-4.680) mIU/L - Progress Progress: improved, re-examined Air Movement: good Progress Note: 03/28/25 18:37 My medical decision making and the assignment of moderate complexity of this patient's medical issue today is based on review of the patient's past medical history, reviewed patient medication list, reviewed patient drug allergy list, history present illness and physical findings on examination. The workup in this patient includes placement of an intravenous line, twelve-lead EKG, CBC, CMP, magnesium level, troponin level, free T4 and TSH. We also ordered a CT scan of the chest without contrast. Differential diagnosis includes but is not limited to anxiety/stress, PVCs, electrolyte abnormalities, other arrhythmias, myocardial infarction, thyroid abnormality, acute intrathoracic process. I interpreted the patient's laboratory data results. Based on laboratory data results there are no acute, emergent medical issues. I did not repeat urinalysis or D-dimer level as these were performed approximately 3 days ago and were normal. I do not think it is necessary to repeat a second troponin in this patient. CT scan of the chest without contrast was interpreted by the radiologist and I reviewed the impression. The impression states left lower lung postinflammatory process. No consolidation. Moderate sized sliding hiatal hernia. Mediastinum and is of normal size and contour. There is no evidence of masses. There is no evidence of interstitial lung disease or emphysema. Blood Culture(s) Obtained: No Antibiotics given: No Counseled pt/family regarding: lab results, diagnosis, need for follow-up, rad results Medical Desision Making - Independent Historian Additional History obtained from: Family - Diagnostic Testing Diagnostic test were ordered, analyzed, and reviewed by me: Yes Radiological Interpretation: Reviewed by me, Teleradiologist Report - Risk of complications Low Risk: Low risk of morbidity from additional dx testing or treatment - Departure Departure Disposition: Home Clinical Impression: Nonspecific chest pain, Palpitations, PVCs (premature ventricular contractions) Condition: Stable Critical Care Time: No Referrals: FRANCHESCA SALAZAR, THERAPY ASSISTANT [Primary Care Provider, UNKNOWN] - Follow up/PCP as directed Additional Instructions: Continue all your medications as prescribed. 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
[2025-03-28 17:19] VITALS: TEMP 97
[2025-03-28 17:25] LABS: BASOPHIL % 0.4 % (0.1-1.2); Basophil (Absolute #) 0.04 x10^3/uL (0.01-0.08); Eosinophil (Absolute #) 0.09 x10^3/uL (0.04-0.36); Hematocrit 36.9 % (34.1-44.9); Hemoglobin 11.9 g/dL (11.2-15.7); IMMATURE GRAN # 0.02 x10^3u/L (0.001-0.031); IMMATURE GRAN % 0.2 % (0.001-0.429); Lymphocyte (Absolute #) 3.62 x10^3/uL (1.18-3.74); Mean Corpuscular Hemoglobin 29.5 pg (25.6-32.2); Mean Corpuscular Hgb Concent. 32.2 g/dL (32.2-35.5); Monocyte (Absolute #) 0.70 x10^3/uL (0.24-0.86); NUCLEATED RBC # 0.00 x10^3u/L (0.00-0.012); NUCLEATED RBC % 0.0 % (0.00-0.2); Platelet Count 408 x10^3/uL (182-369); Red Blood Count 4.04 x10^6/uL (3.93-5.22); White Blood Count 9.7 x10^3/uL (3.98-10.04)
[2025-03-28 17:44] LABS: Calcium 8.8 mg/dL (8.4-10.2); Carbon Dioxide 26.0 mmol/L (22-30); Creatinine 1 0.94 mg/dL (0.52-1.04); EST GLOMERULAR FILTRATION RATE 74.9 ML/MIN; Glucose 86.0 mg/dL (74-106); Potassium 3.7 mmol/L (3.5-5.1); SGOT/AST 21.0 U/L (14-36); SGPT/ALT 14.0 U/L (0-35); Total Protein 7.5 g/dL (6.3-8.2)
[2025-03-28 18:14] LABS: TROPONIN < 0.012 ng/mL (0.000-0.033)
[2025-03-28 18:15] VITALS: O2SAT 98
--- NOTE | 2025-03-28 18:18 | XRAY ---
CLINICAL HISTORY: Chest pain COMPARISON: none TECHNIQUE: Contiguous axial CT images of the chest were acquired without administration of intravenous contrast. Coronal and sagittal reconstructions were obtained. One of the following dose reduction techniques were utilized for this exam: Automated exposure control, adjustment of the mA and/or kV according to patient size, use of iterative reconstruction. FINDINGS: Lungs: Few tiny reticulonodular densities with tree-in-bud appearance of the tiny nodules noted peribronchovascular at the posterior and lateral left lower lung lobe and in the posterior left upper lung lobe Decreased volume of the left lower lung lobe with multiple atelectatic bands could be a sequelae of prior infection. The lung parenchyma is clear with no evidence of consolidation, collapse, or focal lesions. No pulmonary masses are identified. No evidence of interstitial lung disease or emphysema. No pleural effusion or pleural thickening. Mediastinum: The mediastinum is normal in size and contour. No mediastinal mass or abnormal lymphadenopathy. The heart size is within normal limits. Moderately sized sliding hiatus hernia Hilar Structures: The hilar structures appear normal without enlargement or abnormality. No atheromatous calcifications of the aorta or coronary arteries. Trachea and Main Bronchi: The trachea and main bronchi are patent without evidence of obstruction or abnormality. Chest Wall: The chest wall is unremarkable with no evidence of soft tissue or bony abnormalities. Upper Abdomen: 2 mm left lower pole non-obstructing renal stone. Prominent left renal pelvis. Status postcholecystectomy Bones: Visualized osseous structures are normal, no evidence of fracture or lytic/sclerotic lesions. Mild spine degenerative changes. IMPRESSION: 1. A few tiny reticulonodular densities were noted peribronchovascular at the posterior and lateral left lower lung lobe and in the posterior left upper lung lobe, suggesting post-infective/inflammatory process. Advised clinical and Lab correlation 2. No detected established areas of consolidationDecreased volume of the left lower lung lobe with multiple atelectatic bands could be a sequelae of prior infection 3. Moderately sized sliding hiatus hernia Electronically Signed by: See Luis MD. (03/28/2025 18:17:52 EDT)
[2025-03-28 18:54] VITALS: BP 152/89; PULSE 69; RESP 18
== END 2025-03-28 19:09 | disposition home or self-care (01) ==
LOC: ED 16:52
DX: I49.3 Ventricular premature depolarization (principal); R00.2 Palpitations; R07.9 Chest pain, unspecified; Z79.899 Other long term (current) drug therapy